=== PATIENT | male | born 1990 | race Caucasian/White ===

== ENCOUNTER 2018-11-15 11:42 | Emergency (ER) | payer OTHER ==
[~2018-11-15] VITALS: Ht 185.4 cm; Wt 159.1 kg
[2018-11-15 11:44] VITALS: Ht 185.4 cm; Wt 159.1 kg
[2018-11-15] MEDS ORDERED: KETOROLAC 60 MG INJ IM STA (13:08)
[2018-11-15] MEDS ORDERED: LIDOCAINE 1% (MDV) 20 ML INJ SC ONE (14:00)
[2018-11-15] MEDS ORDERED: IBUP-1542 PO (18:33)
[2018-11-15 18:49] VITALS: BP 155/94; PULSE 87; RESP 16
--- NOTE | 2018-11-15 20:27 | QN ---
Documentation Comment The patient was evaluated by the SILK SCREEN OPERATOR Procedure: Risks/benefits/alternatives were explained to the patient The right great toe was digital block with lidocaine 1%, the dislocated right great toe was treated with traction and countertraction Repeat x-rays show proper alignment, no fracture The remaining of the chart to be done by the SILK SCREEN OPERATOR OLVIN MART MD Nov 15, 2018 20:27
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
== END 2018-11-15 18:51 | disposition home or self-care (01) ==
LOC: FTE 11:42
DX: S93.121A Dislocation of metatarsophalangeal joint of right great toe, initial encounter (principal); I10 Essential (primary) hypertension; V49.49XA Driver injured in collision with other motor vehicles in traffic accident, initial encounter
CPT/HCPCS: 28630; 73630; 96372; 99284; J1885